=== PATIENT | female | born 1960 | race Caucasian/White ===

== ENCOUNTER 2023-12-10 09:03 | Outpatient (CLI) | payer MEDICARE, SELFPAY ==
--- NOTE | 2023-12-10 09:26 | XRR_ITS ---
PROCEDURE INFORMATION: Exam: XR Left Shoulder Exam date and time: 12/10/2023 9:30 AM Age: 62 years old Clinical indication: Pain; Shoulder; Left; Additional info: Pain in left shoulder TECHNIQUE: Imaging protocol: Radiologic exam of the left shoulder. Views: 2 or more views. COMPARISON: No relevant prior studies available. FINDINGS: Bones/joints: Normal. No fracture or dislocation. No significant arthritic changes. Soft tissues: Normal. XR/XR shoulder LT min 2V* [id number] IMPRESSION: No acute findings.
== END 2023-12-10 09:04 | disposition home or self-care (01) ==
PROVIDERS: PCP Nurse Practitioner Family; Visit Provider Nurse Practitioner Family
DX: M25.512 Pain in left shoulder (principal); M25.511 Pain in right shoulder
CPT/HCPCS: 73030

== ENCOUNTER 2024-08-24 10:43 | Outpatient (CLI) | payer MEDICARE, SELFPAY ==
--- NOTE | 2024-08-24 10:47 | XRR_ITS ---
PROCEDURE INFORMATION: Exam: XR Right Shoulder Exam date and time: 08/24/2024 11:06 AM Age: 63 years old Clinical indication: Right; Limited rom and pain x2 years, no acute injury, left shoulder pain with same symptoms, patient states left shoulder is worse; Additional info: Other specified joint disorder, left shoulder ( see notes), reason for exam changed to right shoulder via verbal from krystina TECHNIQUE: Imaging protocol: Radiologic exam of the right shoulder. Views: 2 or more views. COMPARISON: No relevant prior studies available. FINDINGS: Bones/joints: No fracture or dislocation is noted. There are mild degenerative changes involving the AC joint. There is irregularity with subchondral cyst formation involving the lateral humeral head. This is a nonspecific finding but can be seen with impingement. Bony mineralization is normal. Soft tissues: Normal. XR/XR shoulder RT min 2V* [id number] IMPRESSION: 1. Mild AC joint osteoarthritis. 2. Subchondral cyst formation and irregularity involving the lateral humeral head. This can be seen with impingement.
== END 2024-08-24 10:44 | disposition home or self-care (01) ==
LOC: RAD 10:44
PROVIDERS: PCP Nurse Practitioner Family; Visit Provider Nurse Practitioner Family
DX: M25.812 Other specified joint disorders, left shoulder (principal); M19.011 Primary osteoarthritis, right shoulder; R93.6 Abnormal findings on diagnostic imaging of limbs
CPT/HCPCS: 73030

== ENCOUNTER 2024-09-18 10:06 | Outpatient (CLI) | payer MEDICARE, SELFPAY ==
--- NOTE | 2024-09-18 10:09 | XR_ITS ---
WS: [id number] Right knee, AP and lateral views, 09/18/2024 Clinical Data: PAIN IN RIGHT KNEE Comparison: None. Findings: No fractures or dislocations are seen. The joint spaces are normal. The patella is intact. There are anterior superior and inferior patellar spurs. The soft tissues are unremarkable. XR/XR knee RT 1-2V [id number] Impression: Anterior patellar spurring.
== END 2024-09-18 10:07 | disposition home or self-care (01) ==
LOC: RAD 10:08
PROVIDERS: PCP Nurse Practitioner Family; Visit Provider Nurse Practitioner Family
DX: M25.561 Pain in right knee (principal); M25.761 Osteophyte, right knee
CPT/HCPCS: 73560

== ENCOUNTER 2024-12-29 15:35 | Outpatient (CLI) | payer MEDICARE, SELFPAY ==
--- NOTE | 2024-12-29 15:43 | XR_ITS ---
WS: [id number] SCREENING DEXA SCAN [facility] CLINICAL INFORMATION: ASYMPTOMATIC MENOPAUSAL STATE COMPARISON: None. FINDINGS: The L1-L4 bone mineral density measures 1.156 g/cm2. This corresponds to a T score score of -0.2 and Z score of 1.2. Left femoral neck bone mineral density measures 1.128 g/cm2. This corresponds to a T score of 1.0 and Z score of 2.0. Right femoral neck bone mineral density measures 1.043 g/cm2. This corresponds to a T score 0.3of and Z score of 1.4. Mean femoral neck bone mineral density measures 1.086 g/cm2. This corresponds to a T score of 0.6 and Z score of 1.7. XR/XR DEXA axial skeleton* [id number] IMPRESSION: Normal bone mineralization. Patient's FRAX calculated 10 year probability for major osteoporotic fracture i s 7.5 % and osteoporotic hip fracture is 0.4%.
== END 2024-12-29 15:36 | disposition home or self-care (01) ==
LOC: RAD 15:35
PROVIDERS: PCP Nurse Practitioner Family; Visit Provider Nurse Practitioner Family
DX: Z78.0 Asymptomatic menopausal state (principal)
CPT/HCPCS: 77080

== ENCOUNTER 2025-04-06 12:51 | Outpatient (CLI) | payer MEDICARE, SELFPAY | END 2025-04-06 12:52 | disposition home or self-care (01) | LOC: SLEEP 12:53 | PROVIDERS: PCP Nurse Practitioner Family; Referring Provider Nurse Practitioner Family; Visit Provider Internal Medicine Pulmonary Disease | DX: G47.10 Hypersomnia, unspecified (principal) | CPT/HCPCS: G0399 ==

== ENCOUNTER → 2025-05-31 09:47 | Outpatient (BNVA) | payer MEDICARE, SELFPAY | PROVIDERS: PCP Nurse Practitioner Family; Referring Provider Nurse Practitioner Family; Visit Provider Specialist | DX: G20.C Parkinsonism, unspecified (principal) | CPT/HCPCS: 99204 ==